=== PATIENT | female | born 1955 | race Caucasian/White ===

== ENCOUNTER 2017-12-08 17:43 | Inpatient (IN) | payer SELFPAY ==
[~2017-12-08] VITALS: Ht 165.1 cm; Wt 62.3 kg
--- NOTE | ~2017-12-08 | WRIGHTHP ---
[place], [place] PATIENT HISTORY AND PHYSICAL EXAM NAME: NOHEMI BOCANEGRA UNIT #: [id number] ROOM: 404 DOCTOR: LISA REYES MD BIRTHDATE: [birth year] DOS: 12/08/2017 HISTORY OF PRESENT ILLNESS: This patient is very well known to us. The patient comes in to the Emergency Room with complaints of severe back pain and inability to ambulate, says that she could not even go to the bathroom, was unable to void because she could not make to the bathroom and ambulance was called and she was brought to the Emergency Room. She denies having any chest pains, palpitations, does not have any fever or chill. Does not have any abdominal pain, nausea, any emesis. PAST MEDICAL HISTORY: Significant for history of lumbar disk disease with spinal stenosis and neurogenic claudication in the past. She has not had any problems for the last few years. MEDICATIONS: She is on none. SOCIAL HISTORY: Nonsmoker, does not use any alcohol. Lives at home with her . PHYSICAL EXAMINATION: GENERAL: She is awake and alert and oriented, quite tearful because of her back pain. VITAL SIGNS: Graphic trend shows pressure 106/50, pulse of 70, respirations 14, temperature 97.9. LUNGS: Clear. HEART: Regular. ABDOMEN: Obese, soft, nontender. EXTREMITIES: Without any edema. BACK: Some diffuse tenderness noted. NEUROLOGIC: No neurological deficits noticed. She is moving all four extremities. Power is grade 4 bilaterally on the lower legs. No sensory changes noticed. ASSESSMENT AND PLAN: The patient presents with acute back pain and inability to ambulate. The patient was admitted. An MRI of lumbar spine was ordered. She has some focal protrusion of L2-L3, impressing on the thecal sac, otherwise unremarkable. The patient was placed on IV steroids and nonsteroidals and PT, OT was consulted. If the patient is able to ambulate, she can be discharged to home and follow up as outpatient with a neurosurgeon if needed. [place], [place] PATIENT HISTORY AND PHYSICAL EXAM NAME: NOHEMI BOCANEGRA UNIT #: [id number] ROOM: 404 DOCTOR: LISA REYES MD BIRTHDATE: [birth year] LISA REYES MD CM:[facility]:PATIENT HISTORY AND PHYSICAL EXAMINATION 4 5 LISA REYES MD 12/10/1734 interface
[2017-12-08 17:45] VITALS: BP 106/53
[2017-12-08 20:30] VITALS: BP 118/67
[2017-12-08 22:15] VITALS: BP 108/50
[2017-12-09] VITALS: BP 103/59
[2017-12-09] MEDS ORDERED: MEDROL DOSEPAK4 MG PO (08:45)
[2017-12-09] MEDS ORDERED: MELOXICAM7.5 MG PO (08:45)
[2017-12-09 16:00] VITALS: BP 117/63
== END 2017-12-09 18:08 | disposition home or self-care (01) | DRG 552 ==
LOC: ED 17:43 → EDHOLD 20:31 → 4E 20:43
DX: M51.26 Other intervertebral disc displacement, lumbar region (principal); E66.9 Obesity, unspecified; G89.29 Other chronic pain; M48.061 Spinal stenosis, lumbar region without neurogenic claudication; R26.2 Difficulty in walking, not elsewhere classified; M46.86 Other specified inflammatory spondylopathies, lumbar region; Z83.3 Family history of diabetes mellitus; Z91.040 Latex allergy status; Z87.891 Personal history of nicotine dependence; Z68.22 Body mass index [BMI] 22.0-22.9, adult

== ENCOUNTER → 2021-02-27 | Outpatient (CLI) | payer OTHER ==
[~2021-02-27] MED LIST: MEDROL DOSEPAK4 MG PO; MELOXICAM7.5 MG PO
[2021-02-27 12:10] LABS: BASO % 0.6 % (0.0-1.0); EOS # 0.1 10*3/uL (0.0-0.4); EOS % 1.2 % (1.0-4.0); LYMPH # 1.7 10*3/uL (1.3-4.4); LYMPH % 33.9 % (27.0-41.0); MEAN CELL VOLUME 94.5 fl (81.0-99.0); MEAN CORPUSCULAR HGB 29.7 pg (27.0-31.0); MEAN CORPUSCULAR HGB CONC 31.5 g/dl (33.0-37.0); MEAN PLATELET VOLUME 9.1 fl (9.6-12.3); MONO # 0.4 10*3/uL (0.1-1.0); MONO % 7.1 % (3.0-9.0); NEUT # 2.8 10*3/uL (2.3-7.9); PLATELET COUNT AUTOMATED 237 10*3/uL (130-400); RED BLOOD COUNT 4.34 10*6/uL (4.10-5.10); RED CELL DISTRI WIDTH 13.2 % (0-14.5); WHITE BLOOD COUNT 4.9 10*3/uL (4.8-10.8)
[2021-02-27 12:29] LABS: ALBUMIN 3.5 gm/dl (3.1-4.5); ALKALINE PHOSPHATASE 60 U/L (45-117); BUN 5 mg/dl (7-24); CHLORIDE 109 mmol/L (98-107); CHOLESTEROL 171 mg/dL (<200); CREATININE 0.65 mg/dL (0.55-1.02); FREE T4 0.89 ng/dl (0.76-1.46); LDL CHOLESTEROL 80 mg/dL (9-159); POTASSIUM 3.8 mmol/L (3.5-5.1); SGOT/AST 22 IU/L (3-35); SGPT/ALT 16 U/L (12-78); SODIUM 143 mmol/L (136-145); TOTAL PROTEIN 6.8 gm/dL (6.4-8.2); TRIGLYCERIDES 139 mg/dl (<150)
[2021-02-27 12:33] LABS: THYROID STIM HORMONE (HS) 0.918 uIU/ml (0.358-4.75)
[2021-02-27 12:58] LABS: VITAMIN D, 25-HYDROXY 65.8 ng/mL (30-100)
== END | disposition home or self-care (01) ==
LOC: LAB 11:52 → RAD 13:30 → MAMMO 14:00
PROVIDERS: ATTEND Internal Medicine
DX: Z12.31 Encounter for screening mammogram for malignant neoplasm of breast (principal); Z13.21 Encounter for screening for nutritional disorder; Z13.1 Encounter for screening for diabetes mellitus; Z13.220 Encounter for screening for lipoid disorders; E55.9 Vitamin D deficiency, unspecified; M81.0 Age-related osteoporosis without current pathological fracture; Z78.0 Asymptomatic menopausal state; Z79.899 Other long term (current) drug therapy

== ENCOUNTER 2022-10-12 10:08 | Emergency (ER) | payer OTHER ==
[~2022-10-12] VITALS: Ht 165.1 cm; Wt 55.8 kg
[2022-10-12 10:15] VITALS: BP 141/81
== END 2022-10-12 12:39 | disposition home or self-care (01) ==
LOC: ED 10:08
DX: S52.512A Displaced fracture of left radial styloid process, initial encounter for closed fracture (principal); Z87.891 Personal history of nicotine dependence; W10.9XXA Fall (on) (from) unspecified stairs and steps, initial encounter; Y93.89 Activity, other specified; Y92.89 Other specified places as the place of occurrence of the external cause; Y99.8 Other external cause status

== ENCOUNTER → 2022-10-20 | Outpatient (CLI) | payer OTHER | END | disposition home or self-care (01) | LOC: ORTHO 02:24 | PROVIDERS: ATTEND Orthopaedic Surgery | DX: S52.532D Colles' fracture of left radius, subsequent encounter for closed fracture with routine healing (principal); X58.XXXD Exposure to other specified factors, subsequent encounter ==

== ENCOUNTER → 2022-10-27 | Outpatient (CLI) | payer OTHER | END | disposition home or self-care (01) | LOC: ORTHO 10:20 | PROVIDERS: ATTEND Orthopaedic Surgery | DX: S52.532D Colles' fracture of left radius, subsequent encounter for closed fracture with routine healing (principal); X58.XXXD Exposure to other specified factors, subsequent encounter ==

== ENCOUNTER → 2022-11-17 | Outpatient (CLI) | payer OTHER | END | disposition home or self-care (01) | LOC: ORTHO 01:20 | PROVIDERS: ATTEND Orthopaedic Surgery | DX: S52.532D Colles' fracture of left radius, subsequent encounter for closed fracture with routine healing (principal); M25.732 Osteophyte, left wrist; X58.XXXD Exposure to other specified factors, subsequent encounter ==